=== PATIENT | male | born 1960 | race Caucasian/White ===

== ENCOUNTER → 2020-01-05 | Outpatient (CLI) | payer BC ==
--- NOTE | 2020-01-05 13:52 | RAD ---
CT abdomen pelvis without contrast dated 01/05/2020. No comparison available. CLINICAL INDICATION: Inguinal hernia. TECHNIQUE: Contiguous axial imaging the abdomen pelvis performed without the administration of IV or oral contrast. One or more of the following individualized dose reduction techniques were utilized for this examination: 1. Automated exposure control 2. Adjustment of the mA and/or kV according to patient size 3. Use of iterative reconstruction technique. FINDINGS: There is a large left inguinal hernia that contains mesenteric fat and mesenteric vessels extends into the left scrotal sac region. No bowel loops extend into the hernia sac. The hernia neck measures about 3.9 cm. There is a small right inguinal hernia containing only fat. Urinary bladder is nondistended. Prostate gland is mildly enlarged. No free fluid or pelvic lymphadenopathy. Unopacified GI tract normal in caliber and contour. No bowel wall thickening. No inflammatory stranding in the mesentery. Appendix normal in caliber. No ascites or lymphadenopathy. Abdominal aorta normal in caliber. There are a few scattered diverticula within the colon. No paracolonic inflammatory changes. Moderate stool throughout. Liver and spleen are homogeneous. No biliary ductal dilatation. Gallbladder, pancreas, adrenal glands are unremarkable. Kidneys are symmetric in size and attenuation. No stone or hydronephrosis. Limited images of lung bases are clear. Heart size within normal limits. No pleural or pericardial effusion. Bone windows show no acute findings. Mild multilevel spondylosis. Postsurgical changes at L5-S1. IMPRESSION: 1. Large left inguinal hernia containing only fat. 2. Small right inguinal hernia containing only fat. 3. No acute findings. Normal appendix. 4. Diverticulosis. Electronically signed by: Mendoza Olivares MD (01/05/2020 1:50 PM) [id number]
== END ==
LOC: CT 12:42
PROVIDERS: ATTEND Family Medicine
DX: K40.90 Unilateral inguinal hernia, without obstruction or gangrene, not specified as recurrent (principal); K46.9 Unspecified abdominal hernia without obstruction or gangrene; M47.817 Spondylosis without myelopathy or radiculopathy, lumbosacral region; K57.30 Diverticulosis of large intestine without perforation or abscess without bleeding; Z98.1 Arthrodesis status
CPT/HCPCS: 74176